=== PATIENT | female | born 1950 | race Caucasian/White ===

== ENCOUNTER → 2016-12-27 | Outpatient (CLI) | payer MEDICARE, OTHER ==
[~2016-12-27] MED LIST: ATEN100T; BUPR150T6; BUPR75TA5; HYDR-3138; HYDR1POW19; METF10002; OMEP40CA6; OMNIPAQUE 350 MG/ML, 100ML BOTTLE ONE; SIMV10TA3
== END | disposition home or self-care (01) ==
LOC: CFH 09:51
PROVIDERS: ATTEND Specialist
DX: C85.90 Non-Hodgkin lymphoma, unspecified, unspecified site (principal); K76.0 Fatty (change of) liver, not elsewhere classified; E04.9 Nontoxic goiter, unspecified
CPT/HCPCS: 71260; 74177; Q9967

== ENCOUNTER → 2017-06-13 | Outpatient (CLI) | payer MEDICARE, OTHER ==
[~2017-06-13] MED LIST changes: -HYDR-3138; +HYDR-3237
== END | disposition home or self-care (01) ==
LOC: CFH 09:42
PROVIDERS: ATTEND Specialist
DX: C83.30 Diffuse large B-cell lymphoma, unspecified site (principal); R59.9 Enlarged lymph nodes, unspecified
CPT/HCPCS: 71260; 74177; Q9967

== ENCOUNTER → 2017-08-26 | Outpatient (CLI) | payer MEDICARE, OTHER ==
[~2017-08-26] MED LIST changes: +ATEN25TA PO; +CHOL200024 PO; +DIPH25CA61 PO; +ESCI20TA PO; +IMMODIUM PO; +LACT1CAP37 PO; +LOSA25TA5 PO; +MELA5TAB19 PO; +METF500T4 PO; +MULT-516 PO; +OMEG100023 PO; -OMNIPAQUE 350 MG/ML, 100ML BOTTLE ONE; +OXYC-302 PO; +SIMV20TA3 PO; +UBID100C19 PO; +VITA100C8 PO
== END ==
LOC: STAR 10:25
PROVIDERS: ATTEND Internal Medicine Gastroenterology
DX: Z02.9 Encounter for administrative examinations, unspecified (principal)

== ENCOUNTER 2017-08-30 08:34 | Day surgery (SDC) | payer MEDICARE, OTHER ==
[~2017-08-30] VITALS: Ht 165.1 cm; Wt 106.0 kg
[2017-08-30 09:20] VITALS: BP 139/85
[2017-08-30] MEDS ORDERED: FENTANYL PF 100 MCG/2ML ONE (10:18)
[2017-08-30] MEDS ORDERED: MIDAZOLAM 1 MG/ML, 5ML ONE (10:19)
== END 2017-08-30 11:50 ==
LOC: OUT 08:34 → MERGE 10:30 → OUT 11:50
PROVIDERS: ATTEND Internal Medicine Gastroenterology
DX: Z09 Encounter for follow-up examination after completed treatment for conditions other than malignant neoplasm (principal); D12.4 Benign neoplasm of descending colon; K57.30 Diverticulosis of large intestine without perforation or abscess without bleeding; Z86.010 Personal history of colon polyps; F32.9 Major depressive disorder, single episode, unspecified; E11.9 Type 2 diabetes mellitus without complications; E78.5 Hyperlipidemia, unspecified; I10 Essential (primary) hypertension; K58.9 Irritable bowel syndrome, unspecified; G43.909 Migraine, unspecified, not intractable, without status migrainosus; Z90.49 Acquired absence of other specified parts of digestive tract; Z98.890 Other specified postprocedural states; Z90.710 Acquired absence of both cervix and uterus; Z87.891 Personal history of nicotine dependence
CPT/HCPCS: 45385; 82962; 88305; 99152; 99153; J2250; J3010

== ENCOUNTER → 2018-06-30 | Outpatient (CLI) | payer MEDICARE, OTHER ==
[~2018-06-30] MED LIST changes: -LOSA25TA5 PO; +LOSA25TA6 PO; +METF500T17 PO; -METF500T4 PO; +OMNIPAQUE 350 MG/ML, 100ML BOTTLE ONE; +UBID100C10 PO; -UBID100C19 PO
== END | disposition home or self-care (01) ==
LOC: RAD 10:11
PROVIDERS: ATTEND Specialist
DX: C82.80 Other types of follicular lymphoma, unspecified site (principal); R59.0 Localized enlarged lymph nodes
CPT/HCPCS: 71260; 74177; Q9967

== ENCOUNTER → 2020-10-01 | Outpatient (CLI) | payer MEDICARE, OTHER ==
[~2020-10-01] MED LIST changes: -BUPR150T6; +BUPR150T7; -ESCI20TA PO; +ESCI20TA5 PO; +LOSA25TA25 PO; -LOSA25TA6 PO; +MELA5TAB14 PO; -MELA5TAB19 PO; +OMEP40CA42; -OMEP40CA6; -OMNIPAQUE 350 MG/ML, 100ML BOTTLE ONE; +SIMV10TA18; -SIMV10TA3; +SIMV20TA19 PO; -SIMV20TA3 PO; +TIZA4TAB2 PO; +TRAZ-96 PO; +VITA100C10 PO; -VITA100C8 PO
== END | disposition home or self-care (01) ==
LOC: STAR 11:11
PROVIDERS: ATTEND Orthopaedic Surgery
DX: Z01.818 Encounter for other preprocedural examination (principal); M75.121 Complete rotator cuff tear or rupture of right shoulder, not specified as traumatic; M19.011 Primary osteoarthritis, right shoulder; M25.511 Pain in right shoulder; I44.0 Atrioventricular block, first degree; Z20.822 Contact with and (suspected) exposure to COVID-19
CPT/HCPCS: 87081; 87147; 87635; 93005